=== PATIENT | female | born 1965 | race Caucasian/White ===

== ENCOUNTER 2021-07-18 11:16 | Outpatient (CLI) | payer BC | END 2021-07-18 11:17 | disposition home or self-care (01) | LOC: CSHCT 11:16 | PROVIDERS: ATTEND Family Medicine | DX: R31.9 Hematuria, unspecified (principal); N23 Unspecified renal colic; N13.2 Hydronephrosis with renal and ureteral calculous obstruction; K76.0 Fatty (change of) liver, not elsewhere classified; K57.30 Diverticulosis of large intestine without perforation or abscess without bleeding | CPT/HCPCS: 74176 ==

== ENCOUNTER 2022-04-15 15:20 | Emergency (ER) | payer BC ==
[~2022-04-15 15:20] MED LIST: Iopamidol 370 76% 100 ML VIAL ONE
[2022-04-15 16:35] LABS: #Basophils 0.2 10x3/uL (0.0-0.2); #Eosinphils 0.6 10x3/uL (0.0-0.5); #Monocytes 0.8 10x3/uL (0.0-1.1); #Neutrophils 10.4 10x3/uL (1.5-8.4); %Eosinophils 3.5 % (0.0-6.0); %Lymphocytes 25.7 % (18.0-47.0); %Monocytes 4.5 % (0.0-10.0); %Neutrophils 62.4 % (40.0-75.0); Hemoglobin 15.3 g/dL (12.0-15.5); Mean Corpuscular HGB CONC 35.9 g/dL (32.0-36.0); Mean Corpuscular Hemoglobin 30.6 pg (27.0-33.0); Mean Corpuscular Volume 85.2 fl (81.6-98.3); Mean Platelet Volume 8.9 fl (7.4-10.4); Platelet Count 315 10x3/uL (150-450); RBC Distribution Width 13.5 % (11.5-14.5); White Blood Cell (WBC) Count 16.7 10x3/uL (3.5-10.5)
[2022-04-15 16:44] LABS: ALT (SGPT) 17 U/L (8-55); AST (SGOT) 30 U/L (5-34); Albumin 4.1 g/dL (3.5-5.0); Alkaline Phosphatase 79 U/L (40-110); Anion Gap 13 mmol/L (10-20); BUN (Urea Nitrogen) 10 mg/dL (9.8-20.1); Bilirubin, Total 0.3 mg/dL (0.2-1.2); Calc. Creatinine Clearance 0 mL/min (70-130); Carbon Dioxide 23 mmol/L (22-29); Chloride 104 mmol/L (98-107); Estimated GFR 97; Globulin 3.1 g/dL (2.4-3.5); Glucose 211 mg/dL (70-105); Potassium 3.8 mmol/L (3.5-5.1); Protein, Total 7.2 g/dL (6.0-8.3); Sodium 136 mmol/L (136-145)
[2022-04-15] MEDS ORDERED: Aspirin Chewable 81 MG TAB ONE (17:00)
[2022-04-15 17:14] LABS: Troponin I 7.598 ng/mL (< 0.028)
[2022-04-15] MEDS ORDERED: Enoxaparin Sodium 80 MG/0.8 ML SYRINGE ONE (17:46)
[2022-04-15] MEDS ORDERED: Nitroglycerin 2% Ointment 1 INCH/1 GM Packet ONE (18:11)
[2022-04-15 19:16] LABS: SARS-CoV-2 NAA Rapid Test Not Detected (NotDetected)
== END 2022-04-15 20:01 | disposition short-term general hospital (02) ==
LOC: CSHERS 15:20
DX: I21.4 Non-ST elevation (NSTEMI) myocardial infarction (principal); E11.9 Type 2 diabetes mellitus without complications; I10 Essential (primary) hypertension; Z20.822 Contact with and (suspected) exposure to COVID-19; Z79.84 Long term (current) use of oral hypoglycemic drugs; Z79.899 Other long term (current) drug therapy
CPT/HCPCS: 71045; 71275; 80053; 83690; 84484; 85025; 85379; 93005; 96372; J1650; Q9967; U0002

== ENCOUNTER 2025-06-16 09:22 | Day surgery (SDC) | payer BC ==
[2025-06-15 10:17] VITALS: BMI 30.2
[2025-06-16] MEDS ORDERED: CEFAZOLIN 2 GM VIAL ONE (11:18)
[2025-06-16] MEDS ORDERED: Ondansetron PF 4 MG/2 ML Vial ONE (11:42)
[2025-06-16] MEDS ORDERED: PROPOFOL 20 ML ONE ×2 (11:42→12:37)
[2025-06-16] MEDS ORDERED: PHENYLEPHRINE-NS 100 MCG/ML 10 ML SYRINGE ONE ×2 (12:24→12:54)
[2025-06-16] MEDS ORDERED: HYDROcodone/Acetaminophen 10/325 mg Tablet ONE (14:33)
[2025-06-16] MEDS ORDERED: Ibuprofen 200 MG TAB ONE (16:33)
== END 2025-06-16 16:50 | disposition home or self-care (01) ==
LOC: CSHSDC 09:22
PROVIDERS: ATTEND Podiatrist Foot & Ankle Surgery
PROC: 0SSN0ZZ Reposition Left Metatarsal-Phalangeal Joint, Open Approach (ICD-10-PCS; principal; 2025-06-16)
DX: M21.612 Bunion of left foot (principal); Z88.1 Allergy status to other antibiotic agents; Z88.2 Allergy status to sulfonamides; Z88.8 Allergy status to other drugs, medicaments and biological substances; Z90.49 Acquired absence of other specified parts of digestive tract; Z98.890 Other specified postprocedural states
CPT/HCPCS: C1713; C1769; C1776; J0665; J1100; J2250; J2405; J2704; J3010